=== PATIENT | male | born 1950 | race Caucasian/White ===

== ENCOUNTER 2017-02-12 14:43 | Outpatient (CLI) | payer MEDICARE, OTHER ==
--- NOTE | 2017-02-13 09:13 | XRAY Report ---
TWO-VIEW CHEST: 02/12/2017 CLINICAL INDICATION: Cough, shortness of breath for two weeks. COMPARISON: 01/10/2013 FINDINGS: Frontal and lateral views of the chest demonstrate a normal cardiac silhouette. The lungs are clear. No effusion or pneumothorax is present. IMPRESSION: NORMAL CHEST, UNCHANGED. JOB #: [id number] EXT JOB #:[id number]
== END 2017-02-12 14:44 | disposition home or self-care (01) ==
LOC: DI.S 14:43
PROVIDERS: ATTEND Nurse Practitioner Family
DX: R05 Cough (principal); R06.00 Dyspnea, unspecified
CPT/HCPCS: 71020

== ENCOUNTER 2018-07-05 10:13 | Outpatient (CLI) | payer MEDICARE, OTHER | END 2018-07-05 10:14 | disposition home or self-care (01) | LOC: LAB 10:13 | PROVIDERS: ATTEND Specialist | DX: C61 Malignant neoplasm of prostate (principal) | CPT/HCPCS: 36415; 84153 ==

== ENCOUNTER 2018-07-10 09:19 | Outpatient (CLI) | payer MEDICARE, OTHER | END 2018-07-10 09:20 | disposition home or self-care (01) | LOC: DI 09:19 | PROVIDERS: ATTEND Nurse Practitioner Family | DX: I44.0 Atrioventricular block, first degree (principal); R94.31 Abnormal electrocardiogram [ECG] [EKG]; I51.7 Cardiomegaly | CPT/HCPCS: 93306 ==

== ENCOUNTER 2018-07-21 14:39 | Outpatient (CLI) | payer MEDICARE, OTHER ==
--- NOTE | 2018-07-21 17:57 | CARDIAC PROCEDURE NOTE ---
DATE OF SERVICE: 07/21/2018 Physician: Laquita Driscoll MD, [facility] INDICATION: Abnormal EKG. CARDIAC RISK FACTORS: Male gender, advanced age, and possibly hypertension. SUMMARY: After signing informed consent, the patient underwent a treadmill stress test using a Jefe protocol. No imaging was ordered with this test. Resting heart rate 54, peak heart rate 128 (86% predicted maximum heart rate for age). Resting blood pressure 148/76, peak blood pressure 200/80. The patient exercised for 10 minutes and 27 seconds on a Jefe protocol. He achieved a peak heart rate of 128 (86% PMHR) and 12 METS. The patient had mild shortness of breath at peak, no chest pain. He also did not feel palpitations. RESTING EKG: Sinus bradycardia, first-degree block, left atrial enlargement, biphasic T waves with a significant negative component in V3 through V6 and leads III and aVF. EKG AT [facility]: New flattened T waves in leads II, III, aVF and V4 through V6 and also new 3 mm upsloping, ST depressions in leads II, III, V4 but 4 mm upsloping, ST depressions in V5 and V6. SUMMARY: 1. Good exercise tolerance. 2. Abnormal resting EKG. 3. EKG changes that could be consistent with ischemia at an adequately achieved heart rate. 4. No images ordered with this treadmill stress test. 5. Consider re-checking, with a stress test plus nuclear myocardial perfusion imaging or stress test with Echo imaging. cc: MD Gio Pascal M.D. TD: 07/21/2018 17:20 [email or web address]
== END 2018-07-21 14:40 | disposition home or self-care (01) ==
LOC: DI 14:39
PROVIDERS: ATTEND Nurse Practitioner Family
DX: I44.0 Atrioventricular block, first degree (principal); R94.31 Abnormal electrocardiogram [ECG] [EKG]

== ENCOUNTER 2019-02-21 08:57 | Outpatient (CLI) | payer MEDICARE, OTHER | END 2019-02-21 08:58 | disposition home or self-care (01) | LOC: LAB 08:57 | PROVIDERS: ATTEND Specialist | DX: C61 Malignant neoplasm of prostate (principal) | CPT/HCPCS: 36415; 84153 ==

== ENCOUNTER 2019-08-16 11:35 | Outpatient (CLI) | payer MEDICARE, OTHER ==
--- NOTE | 2019-08-17 09:01 | XRAY Report ---
Reason: OTHER SPECIFIED RESPIRATORY DISORDERS Procedure Date: 08/16/2019 Accession Number: [id number] / [id number] Procedure: XR - Chest 2 View X-Ray CPT Code: 01556 Final Report FULL RESULT: EXAM: CHEST RADIOGRAPHY EXAM DATE: 08/16/2019 12:16 PM. CLINICAL HISTORY: History of bronchial infections. Congestion since Thursday. COMPARISON: CHEST 2 VIEW PA/LAT 02/12/2017 2:56 PM. TECHNIQUE: 2 views. FINDINGS: Lungs/Pleura: No focal opacities evident. No pleural effusion. No pneumothorax. Normal volumes. Mediastinum: Heart and mediastinal contours are unremarkable. Other: None. IMPRESSION: No acute cardiopulmonary abnormality. RADIA
== END 2019-08-16 11:36 | disposition home or self-care (01) ==
LOC: DI 11:35
PROVIDERS: ATTEND Registered Nurse
DX: J98.8 Other specified respiratory disorders (principal)
CPT/HCPCS: 71046

== ENCOUNTER 2019-09-06 11:50 | Outpatient (CLI) | payer MEDICARE, OTHER | END 2019-09-06 11:51 | disposition home or self-care (01) | LOC: LAB 11:50 | PROVIDERS: ATTEND Specialist | DX: C61 Malignant neoplasm of prostate (principal) | CPT/HCPCS: 36415; 84153 ==

== ENCOUNTER 2020-03-05 12:05 | Outpatient (CLI) | payer MEDICARE, OTHER | END 2020-03-05 12:06 | disposition home or self-care (01) | LOC: LAB 12:05 | PROVIDERS: ATTEND Specialist | DX: C61 Malignant neoplasm of prostate (principal) | CPT/HCPCS: 36415; 84153 ==

== ENCOUNTER 2020-06-11 11:05 | Outpatient (CLI) | payer MEDICARE, OTHER ==
--- NOTE | 2020-06-11 11:48 | XRAY Report ---
PROCEDURE: Foot 3 View LT INDICATIONS: PAIN IN LEFT FOOT TECHNIQUE: 3 views of the foot were acquired. COMPARISON: None FINDINGS: Bones: No fractures or dislocations. No suspicious bony lesions. Soft tissues: No tibiotalar joint effusion. Achilles tendon appears normal. IMPRESSION: No trauma found over the left foot. 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 Source of new onset left foot pain is not identified. Reviewed by: Nabor Snider MD on 06/11/2020 11:46 AM PDT Approved by: Nabor Snider MD on 06/11/2020 11:46 AM PDT Station ID: [id number]
--- NOTE | 2020-06-11 11:59 | XRAY Report ---
PROCEDURE: Ankle 3 View LT INDICATIONS: LEFT ANKLE PAIN TECHNIQUE: 3 views of the ankle were acquired. COMPARISON: Foot plain films same day reviewed. FINDINGS: Bones: No fractures or dislocations. Ankle mortise is normally aligned. No suspicious bony lesions . Soft tissues: No tibiotalar joint effusion. Achilles tendon appears normal. IMPRESSION: No trauma found, source of current left ankle pain is not identified. Reviewed by: Nabor Snider MD on 06/11/2020 11:58 AM PDT Approved by: Nabor Snider MD on 06/11/2020 11:58 AM PDT Station ID: [id number]
== END 2020-06-11 11:06 | disposition home or self-care (01) ==
LOC: DI.S 11:05
PROVIDERS: ATTEND Nurse Practitioner Family
DX: M19.072 Primary osteoarthritis, left ankle and foot (principal)

== ENCOUNTER 2020-09-03 10:21 | Outpatient (CLI) | payer MEDICARE, OTHER | END 2020-09-03 10:22 | disposition home or self-care (01) | LOC: LAB 10:21 | PROVIDERS: ATTEND Specialist | DX: C61 Malignant neoplasm of prostate (principal) | CPT/HCPCS: 36415; 84153 ==

== ENCOUNTER 2021-02-14 11:15 | Outpatient (CLI) | payer MEDICARE, BC | END 2021-02-14 11:16 | disposition home or self-care (01) | LOC: LAB 11:15 | PROVIDERS: ATTEND Specialist | DX: C61 Malignant neoplasm of prostate (principal) | CPT/HCPCS: 36415; 84153 ==

== ENCOUNTER 2021-12-16 08:00 | Outpatient (CLI) | payer MEDICARE, BC | END 2021-12-16 23:59 | disposition home or self-care (01) | LOC: LAB 08:00 | PROVIDERS: ATTEND Specialist | DX: C61 Malignant neoplasm of prostate (principal) | CPT/HCPCS: 36415; 84153 ==

== ENCOUNTER 2022-01-22 09:39 | Outpatient (CLI) | payer MEDICARE, BC ==
[2022-01-22 14:58] LABS: CHOLESTEROL 100 mg/dL; HDL CHOLESTEROL 57 mg/dL; TRIGLYCERIDES 30 mg/dL
[2022-01-22 14:59] LABS: CHOL/HDL RATIO 1.8 (<5.0)
== END 2022-01-22 09:40 | disposition home or self-care (01) ==
LOC: LAB.S 09:39
PROVIDERS: ATTEND Internal Medicine Cardiovascular Disease
DX: I25.810 Atherosclerosis of coronary artery bypass graft(s) without angina pectoris (principal)
CPT/HCPCS: 36415; 80061; 83721

== ENCOUNTER 2022-09-09 10:55 | Outpatient (CLI) | payer MEDICARE, BC | END 2022-09-09 10:56 | disposition home or self-care (01) | LOC: LAB 10:55 | PROVIDERS: ATTEND Specialist | DX: C61 Malignant neoplasm of prostate (principal) | CPT/HCPCS: 36415; 84153 ==

== ENCOUNTER 2022-12-01 13:36 | Outpatient (CLI) | payer MEDICARE, BC | END 2022-12-01 13:37 | disposition home or self-care (01) | LOC: LAB 13:36 | PROVIDERS: ATTEND Specialist | DX: C61 Malignant neoplasm of prostate (principal) | CPT/HCPCS: 36415; 84153 ==

== ENCOUNTER 2023-02-06 12:05 | Outpatient (CLI) | payer MEDICARE, BC ==
--- NOTE | 2023-02-06 16:47 | XRAY Report ---
PROCEDURE: Chest 2 View X-Ray INDICATIONS: CHEST CONGESTION TECHNIQUE: 2 views of the chest were acquired. COMPARISON: Chest x-ray, 08/16/2019 patient FINDINGS: Surgical changes and devices: None. Lungs and pleura: No pleural effusions or pneumothorax. Lungs are clear. Mediastinum: Mediastinal contours appear normal. Heart size is normal. Bones and chest wall: No suspicious bony lesions. Overlying soft tissues appear unremarkable. IMPRESSION: No acute cardiopulmonary process. Reviewed by: Joon Love MD on 02/06/2023 4:46 PM PDT Approved by: Joon Love MD on 02/06/2023 4:46 PM PDT Station ID: [id number]
== END 2023-02-06 23:59 | disposition home or self-care (01) ==
LOC: DI.S 12:05
PROVIDERS: ATTEND Physician Assistant Medical
DX: J22 Unspecified acute lower respiratory infection (principal); R06.2 Wheezing

== ENCOUNTER 2023-02-12 09:09 | Outpatient (CLI) | payer MEDICARE, BC ==
--- NOTE | 2023-02-12 09:51 | XRAY Report ---
PROCEDURE: Chest 2 View X-Ray INDICATIONS: ACUTE LOWER RESPIRATORY INFECTION TECHNIQUE: 2 views of the chest were acquired. COMPARISON: X-ray, 02/06/2023. FINDINGS: Surgical changes and devices: None. Lungs and pleura: No pleural effusions or pneumothorax. Lungs are clear. Mediastinum: Mediastinal contours appear normal. Heart size is normal. Bones and chest wall: No suspicious bony lesions. Overlying soft tissues appear unremarkable. IMPRESSION: No acute cardiopulmonary process. Reviewed by: Joon Love MD on 02/12/2023 9:50 AM PDT Approved by: Joon Love MD on 02/12/2023 9:50 AM PDT Station ID: [id number]
[2023-02-12 14:42] LABS: BASOPHILS % (AUTO) 0.2 %; EOSINOPHILS % (AUTO) 0.1 %; HCT - HEMATOCRIT 45.9 % (42.0-52.0); HGB - HEMOGLOBIN 15.4 g/dL (14.0-18.0); LYMPHOCYTES # (AUTO) 0.9 10^3/uL (1.5-3.5); LYMPHOCYTES % (AUTO) 8.2 %; MEAN CORPUSCULAR HEMOGLOBIN 32.2 pg (27.0-31.0); MEAN CORPUSCULAR HGB CONC 33.6 g/dL (32.0-36.0); MEAN PLATELET VOLUME 11.5 fL (7.4-11.4); MONOCYTES # (AUTO) 0.6 10^3/uL (0.0-1.0); MONOCYTES % (AUTO) 5.1 %; NEUTROPHILS # (AUTO) 9.8 10^3/uL (1.5-6.6); NEUTROPHILS % (AUTO) 86.1 %; PLT - PLATELET COUNT 180 10^3/uL (130-450); RED BLOOD COUNT 4.78 10^6/uL (4.70-6.10); RED CELL DISTRIBUTION WIDTH 12.7 % (12.0-15.0); WHITE BLOOD COUNT 11.4 x10^3/uL (4.8-10.8)
[2023-02-12 15:02] LABS: CALCIUM 9.2 mg/dL (8.5-10.3); CREATININE 0.9 mg/dL (0.6-1.2); POTASSIUM 4.1 mmol/L (3.5-5.0)
== END 2023-02-12 09:10 | disposition home or self-care (01) ==
LOC: DI.S 09:09
PROVIDERS: ATTEND Emergency Medicine
DX: R06.2 Wheezing (principal); J22 Unspecified acute lower respiratory infection
CPT/HCPCS: 36415; 80048; 85025; 85379

== ENCOUNTER 2023-02-25 13:21 | Outpatient (CLI) | payer MEDICARE, BC ==
[2023-02-25] MEDS ORDERED: iohexoL-300 100 ML VIAL ONE (13:29)
[2023-02-25] MEDS ORDERED: iohexoL-300 100 ML VIAL IVP ONE (13:33)
--- NOTE | 2023-02-25 15:16 | CT Report ---
PROCEDURE: CHEST W INDICATIONS: PNA CONTRAST: 100ml Omnipaque 300 TECHNIQUE: After the administration of intravenous contrast, 1 mm axial images were acquired from the pulmonary apices through the posterior costophrenic angles. Axial 5 mm soft tissue kernel reconstructions were performed as well as 8 mm axial MIP and coronal and sagittal 5 mm reformations. For radiation dose reduction, the following was used: automated exposure control, adjustment of mA and/or kV according to patient size. COMPARISON: Radiographs 02/12/2023 FINDINGS: Image quality: Good Lungs and pleura:Scattered scarring and atelectasis. No dense airspace disease. Mild bronchial wall t hickening, most pronounced in the proximal lower lobe bronchials. A few micronodules and granulomas are seen, for example in the right lung (9/130), optional 1 year(s) chest CT follow-up could be obtained for high-risk patients. Mediastinum, heart, and esophagus: No hiatal hernia. There are coronary calcifications. No pathologic adenopathy by size criteria. Chest wall and thyroid: Unremarkable Upper abdomen: No gross abnormality. There are splenic and hepatic calcified granulomas. Bones: Degenerative changes. No acute or suspicious osseous finding. IMPRESSION: No dense airspace disease to suggest significant pneumonia. Mild bronchial wall thickening, most nota ble in the lower lobes, possibly representing bronchitis. Mild basal opacities likely atelectasis. No pleural effusions. Other findings as above. Reviewed by: Allen Ruiz MD on 02/25/2023 3:14 PM PDT Approved by: Allen Ruiz MD on 02/25/2023 3:14 PM PDT Station ID: [id number]
== END 2023-02-25 13:22 | disposition home or self-care (01) ==
LOC: DI 13:21
PROVIDERS: ATTEND Registered Nurse
DX: R91.8 Other nonspecific abnormal finding of lung field (principal)
CPT/HCPCS: 71260; Q9967

== ENCOUNTER 2023-05-01 11:57 | Outpatient (CLI) | payer MEDICARE, BC | END 2023-05-01 11:58 | disposition home or self-care (01) | LOC: LAB 11:57 | PROVIDERS: ATTEND Internal Medicine Medical Oncology | DX: C61 Malignant neoplasm of prostate (principal) | CPT/HCPCS: 36415; 84153 ==

== ENCOUNTER 2023-09-16 08:00 | Outpatient (CLI) | payer MEDICARE, BC | END 2023-09-16 08:01 | disposition home or self-care (01) | LOC: LAB.S 08:00 | PROVIDERS: ATTEND Physician Assistant | DX: R09.81 Nasal congestion (principal); R06.2 Wheezing ==

== ENCOUNTER 2023-09-16 08:00 | Outpatient (CLI) | payer MEDICARE, BC ==
--- NOTE | 2023-09-16 10:31 | XRAY Report ---
PROCEDURE: Chest 2V INDICATIONS: INFLUENZA A TECHNIQUE: 2 views of the chest were acquired. COMPARISON: 02/12/2023 FINDINGS: Surgical changes and devices: None. Lungs and pleura: No pleural effusions or pneumothorax. Lungs are clear. Mediastinum: Mediastinal contours appear normal. Heart size is normal. Bones and chest wall: No suspicious bony lesions. Overlying soft tissues appear unremarkable. IMPRESSION: No acute cardiopulmonary process. Reviewed by: Chayo Causey MD on 09/16/2023 10:29 AM [facility] Approved by: Chayo Causey MD on 09/16/2023 10:29 AM [facility] Station ID: [id number]
== END 2023-09-16 23:59 | disposition home or self-care (01) ==
LOC: DI.S 08:00
PROVIDERS: ATTEND Physician Assistant
DX: J10.1 Influenza due to other identified influenza virus with other respiratory manifestations (principal)

== ENCOUNTER 2023-10-19 11:38 | Outpatient (CLI) | payer MEDICARE, BC | END 2023-10-19 11:39 | disposition home or self-care (01) | LOC: LAB 11:38 | PROVIDERS: ATTEND Specialist | DX: C61 Malignant neoplasm of prostate (principal) | CPT/HCPCS: 36415; 84153 ==

== ENCOUNTER 2024-03-18 08:54 | Outpatient (CLI) | payer MEDICARE, BC ==
[2024-03-18 09:25] LABS: CHOL/HDL RATIO 2.8 (<5.0); CHOLESTEROL 153 mg/dL; HDL CHOLESTEROL 54 mg/dL; LDL CHOLESTEROL,CALCULATED 76 mg/dL; LDL/HDL RATIO 1.4 (<3.6); TRIGLYCERIDES 113 mg/dL; VLDL CHOLESTEROL 23 mg/dL
== END 2024-03-18 08:55 | disposition home or self-care (01) ==
LOC: LAB 08:54
PROVIDERS: ATTEND Internal Medicine Cardiovascular Disease
DX: Z51.81 Encounter for therapeutic drug level monitoring (principal); Z79.899 Other long term (current) drug therapy
CPT/HCPCS: 36415; 80061; 83721

== ENCOUNTER 2024-05-02 10:58 | Outpatient (CLI) | payer MEDICARE, BC ==
[2024-05-02 11:10] LABS: BASOPHILS # (AUTO) 0.1 10^3/uL (0.0-0.1); BASOPHILS % (AUTO) 1.1 %; EOSINOPHILS # (AUTO) 0.1 10^3/uL (0.0-0.7); EOSINOPHILS % (AUTO) 2.1 %; HCT - HEMATOCRIT 44.6 % (42.0-52.0); HGB - HEMOGLOBIN 15.3 g/dL (14.0-18.0); LYMPHOCYTES # (AUTO) 1.4 10^3/uL (1.5-3.5); LYMPHOCYTES % (AUTO) 29.9 %; MEAN CORPUSCULAR HEMOGLOBIN 31.8 pg (27.0-31.0); MEAN CORPUSCULAR HGB CONC 34.3 g/dL (32.0-36.0); MEAN CORPUSCULAR VOLUME 92.7 fL (80.0-94.0); MEAN PLATELET VOLUME 10.8 fL (7.4-11.4); MONOCYTES # (AUTO) 0.4 10^3/uL (0.0-1.0); MONOCYTES % (AUTO) 7.6 %; NEUTROPHILS # (AUTO) 2.8 10^3/uL (1.5-6.6); NEUTROPHILS % (AUTO) 59.3 %; PLT - PLATELET COUNT 174 10^3/uL (130-450); RED BLOOD COUNT 4.81 10^6/uL (4.70-6.10); RED CELL DISTRIBUTION WIDTH 11.9 % (12.0-15.0); WHITE BLOOD COUNT 4.7 x10^3/uL (4.8-10.8)
[2024-05-02 11:22] LABS: CALCIUM 9.4 mg/dL (8.5-10.3); CREATININE 0.9 mg/dL (0.6-1.3); POTASSIUM 4.6 mmol/L (3.5-4.5)
== END 2024-05-02 10:59 | disposition home or self-care (01) ==
LOC: LAB 10:58
PROVIDERS: ATTEND Specialist
DX: C61 Malignant neoplasm of prostate (principal); Z79.899 Other long term (current) drug therapy
CPT/HCPCS: 36415; 80048; 84153; 85025